=== PATIENT | female | born 1940 | race Caucasian/White ===

== ENCOUNTER → 2017-02-19 10:03 | Outpatient (CLI) | payer MEDICARE ==
[2013-06-05 08:33] VITALS: BMI 24.5
--- NOTE | ~2017-02-19 | EC ---
PATIENT:TEN SCHROEDER DATE OF SERVICE: 02/19/17 SEX: F MEDICAL RECORD: [id number] DATE OF : 42 LOCATION:[facility] TO [facility] AGE OF PATIENT: 76 ADMISSION DATE: 02/19/17 REFERRING PHYSICIAN: INTERPRETING PHYSICIAN: AMENA HAMPTON M.D. ECHOCARDIOGRAM REPORT ECHO CHARGES 4 ECHO COMPLETE CLINICAL DIAGNOSIS: HYPERTENSION ECHOCARDIOGRAPHIC MEASUREMENTS (adult normal given) AC root (d.<3.7cm) 4.0 LV Septum d (<1.2 cm> 1.4 Valve Excursion 1.8 LV Septum (systole) 1.5 Left Atria (s.<4.0cm> 3.6 LVPW d(<1.2cm) 1.3 RV (d.<2.3cm) 3.0 LVPW (sytole) 1.5 LV diastole(<5.6CM) 4.6 MV E-F(>70mm/sec) LV systole 2.8 LVOT Diameter 1.7 MV exc.(>10mm) 0.9 Est.ejection fraction (50-75%) Pericardial Effusion N DOPPLER: LVIT A 88.0 E 55.0 LA RVSP 38 LVOT 110 AOP1/2T 562 Asc. Ao 147 RVOT 89 RA PA 137 AV Gradient Peak 8.59 AV Mean 4.15 AV Area 1.9 MV Gradient Peak 7.35 MV Mean 3.39 MV Area COMMENTS: Brine Tank Tender: Sultana GARCIA Steamblaster:2 Dr. Hampton TAPE# PACS DATE OF SERVICE: 02/19/2017 REFERRING PHYSICIAN: Peter Sierra MD INDICATION: Hypertension. DESCRIPTION: Left ventricle demonstrates left ventricular hypertrophy. No regional wall motion abnormalities are noted. Estimated ejection fraction is in the order of 60%. Mitral valve is structurally normal. There is mild regurgitation seen. Left atrium appears normal in size. The aortic valve is ECHOCARDIOGRAM REPORT [id number] TEN SCHROEDER trileaflet. There is mild insufficiency seen, but no evidence of stenosis. Right ventricle is mildly dilated. Tricuspid valve is structurally normal. There is mild regurgitation noted. Right atrium is normal in size. There is no pericardial effusion seen. IMPRESSION: 1. Left ventricular hypertrophy with preserved ejection of 60%. 2. Mild mitral regurgitation. 3. Mild aortic insufficiency. 4. Mild tricuspid regurgitation. TRANSINT:[id number] Voice Confirmation ID: [id number] DOCUMENT ID: [id number] AMENA HAMPTON M.D. CC: [id number] DICTATION DATE: 02/19/171510 OUTPATIENT PSYCHIATRIST: 02/19/17 [address] [facility] [address] [id number]
[~2017-02-19 10:03] MED LIST: LOPRESSOR25 MG PO
== END | disposition home or self-care (01) ==
LOC: D.ECHO 02-18 09:00
DX: I10 Essential (primary) hypertension (principal)